=== PATIENT | female | born 1950 | race Caucasian/White ===

== ENCOUNTER 2018-07-08 18:20 | Emergency (ER) | payer MEDICAID, SELFPAY ==
[~2018-07-08] VITALS: Ht 162.6 cm; Wt 58.0 kg
[~2018-07-08 18:20] MED LIST: ONDA4TAB13 SL
[2018-07-08] MEDS ORDERED: ALBU18HF INH (18:56)
[2018-07-08] MEDS ORDERED: ALBUTEROL/IPRATROPIUM 2.5MG/0.5MG, 3 ML ONE (19:11)
[2018-07-08] MEDS ORDERED: ALBUTEROL/IPRATROPIUM 2.5MG/0.5MG, 3 ML NPPB ONE (19:30)
[2018-07-08 19:34] VITALS: BP 122/68
== END 2018-07-08 20:54 | disposition home or self-care (01) ==
LOC: ED 20:15
DX: J44.1 Chronic obstructive pulmonary disease with (acute) exacerbation (principal); R06.00 Dyspnea, unspecified
CPT/HCPCS: 71045; 93005; 94640; 99284; J7512; J7620

== ENCOUNTER 2019-11-30 12:39 | Outpatient (CLI) | payer MEDICARE, MEDICAID ==
[~2019-11-30 12:39] MED LIST changes: +ALBU18HF INH
== END 2019-11-30 23:59 | disposition home or self-care (01) ==
LOC: CARD 12:39
PROVIDERS: ATTEND Psychiatry & Neurology Neurology
DX: R56.9 Unspecified convulsions (principal); G93.40 Encephalopathy, unspecified
CPT/HCPCS: 95819

== ENCOUNTER 2020-04-23 08:03 | Emergency (ER) | payer MEDICARE, MEDICAID ==
[~2020-04-23] VITALS: Ht 160 cm; Wt 50.0 kg
--- NOTE | 2020-04-23 08:10 | NUR ---
Pt BIB [facility] from home-pt c/o LLQ abd pain with N/V and bright red blood in stool since last night. Pt very restless in bed. Pt ambulatory to bathroom and back to bed with steady gait. Pt placed in gown, positioned for comfort in bed. Pt declines warm blanket offered. Darvin CHAVEZ at bedside to evaluate pt.
[2020-04-23] MEDS ORDERED: MORPHINE SULFATE 4 MG/ML, 1ML ONE ×2 (08:18→09:14)
[2020-04-23] MEDS ORDERED: ONDANSETRON 2MG/ML, 2ML ONE (08:18)
[2020-04-23] MEDS: MORPHINE SULFATE 4 MG/ML, 1ML IVPush PRN ×2 (08:28→09:18)
--- NOTE | 2020-04-23 08:29 | NUR ---
Pt medicated per MAR and provided warm blanket per request, denies other needs.
[2020-04-23] MEDS ORDERED: SODIUM CHLORIDE 0.9% 1,000ML IVBOLUS ONE (08:30)
[2020-04-23] MEDS ORDERED: ONDANSETRON 2MG/ML, 2ML IVPush ONE (08:30)
[2020-04-23 08:49] LABS: BASOPHILS # (AUTO) 0.04 x10^3/uL (0-0.1); BASOPHILS % (AUTO) 0 % (0-1); EOSINOPHILS # (AUTO) 0.05 x10^3/uL (0-0.4); EOSINOPHILS % (AUTO) 0 % (1-7); LYMPHOCYTES # (AUTO) 1.79 x10^3/uL (1-3.4); LYMPHOCYTES % (AUTO) 17 % (22-44); MD NO; MEAN CORPUSCULAR HEMOGLOBIN 32.9 pg (27.0-34.8); MEAN CORPUSCULAR HGB CONC 32.8 g/dL (32.4-35.8); MEAN CORPUSCULAR VOLUME 100.5 fL (80-100); MONOCYTES # (AUTO) 0.63 x10^3/uL (0.2-0.8); MONOCYTES % (AUTO) 6 % (2-9); NEUTROPHILS # (AUTO) 8.01 x10^3/uL (1.8-6.8); NEUTROPHILS % (AUTO) 76 % (42-75); PLATELET COUNT 339 x10^3/uL (130-400); RED BLOOD COUNT 4.76 x10^6/uL (3.82-5.3); RED CELL DISTRIBUTION WIDTH 15.1 % (9.6-15.2)
[2020-04-23 09:00] LABS: ALANINE AMINOTRANSFERASE 23 U/L (12-78); ALBUMIN 3.9 g/dL (3.4-5.0); ANION GAP 4 mmol/L (5-15); CALCIUM 9.7 mg/dL (8.5-10.1); CHLORIDE 106 mmol/L (98-107)
[2020-04-23 09:02] LABS: ALKALINE PHOSPHATASE 161 U/L (45-117); TOTAL PROTEIN 7.8 g/dL (6.4-8.2)
--- NOTE | 2020-04-23 09:10 | NUR ---
PT TO CT
[2020-04-23 09:41] LABS: MICROSCOPIC AUTO
[2020-04-23 10:01] VITALS: BP 125/80
[2020-04-23] MEDS ORDERED: OMNIPAQUE 350 MG/ML, 75ML BOTTLE ONE (10:55)
== END 2020-04-23 10:27 | disposition home or self-care (01) ==
LOC: ED 09:07
DX: K50.10 Crohn's disease of large intestine without complications (principal); J44.9 Chronic obstructive pulmonary disease, unspecified; Z87.891 Personal history of nicotine dependence
CPT/HCPCS: 36415; 74174; 80053; 81001; 83690; 85025; 87086; 96374; 96375; 96376; 99285; J2270; J2405; J7030; Q9967